=== PATIENT | female | born 1960 | race Caucasian/White ===

== ENCOUNTER 2021-01-02 08:37 | Inpatient (IN) | payer OTHER ==
[~2021-01-02] VITALS: Ht 157.5 cm; Wt 77.1 kg
[2021-01-02 08:40] VITALS: BP 167/86
[2021-01-02] MEDS ORDERED: TRELEGY ELLIPT1 EACH INH (08:48)
[2021-01-02] MEDS ORDERED: NEBULIZER MISCELL (08:48)
[2021-01-02] MEDS ORDERED: PROAIR HFA8.5 GM INH (08:48)
[2021-01-02 09:17] LABS: HEMATOCRIT 20.2 % (37.0-47.0); MCH 28.4 pg (26.0-34.0); MCHC 31.1 g/dL (28.0-37.0); MCV 91.3 fL (80.0-100.0); MPV 10.3 fl. (7.2-11.1); NUCLEATED RBCS 0 /100WBC; RBC 2.21 mil/uL (4.20-5.00); RDW-CV 19.6 % (10.5-14.5)
[2021-01-02 09:19] LABS: CALCIUM 8.6 mg/dL (8.5-10.1); CREATININE 1.2 mg/dL (0.6-1.3); POTASSIUM 3.3 mmol/L (3.5-5.1)
[2021-01-02 09:24] LABS: HEMOGLOBIN 6.3 gm/dL (12.0-15.0); PLATELET COUNT* 35 thou/uL (150-400); WBC 237.5 thou/uL (4.0-11.0)
[2021-01-02 09:34] LABS: ALBUMIN 3.4 g/dL (3.4-5.0); TOTAL BILIRUBIN 1.6 mg/dL (<0.1-1.0); TOTAL PROTEIN 7.2 g/dL (6.4-8.2)
[2021-01-02 09:49] LABS: ABSOLUTE LYMPHOCYTES 178.1 thou/uL (0.8-5.3); ABSOLUTE MONOCYTES 9.5 thou/uL (0.0-1.2); ABSOLUTE NEUTROPHILS 9.5 thou/uL (1.6-8.1)
[2021-01-02 09:50] LABS: ANISOCYTOSIS 2+; PLATELET ESTIMATE DECREASED
[2021-01-02 09:56] LABS: BLASTS 17 %
--- NOTE | 2021-01-02 10:38 | EKG ---
[place] [address] ELECTROCARDIOGRAM REPORT Name: SMILEY DEL CID Room: [place] [address] ADM IN .R.#: [id number] Admission: 01/02/21 Attend Phys: Ashutosh Yanez Discharge: Date of : 62 Date of Service: 01/02/21 0858 Report #: [id number] THIS REPORT FOR: //name// [facility] ED Test Date: 2021-01-02 Test Time: 08:58:41 Pat Name: SMILEY DEL CID Department: Room: [facility] Gender: F Live Study Manager: TAIWO : 1960 Requested By: Alton Donohue Order Number: [id number] MD: Yahir Abdi Measurements Intervals [place] Rate: 134 P: 77 DC: 131 QRS: 246 QRSD: 100 T: 57 QT: 315 QTc: 471 Interpretive Statements Sinus tachycardia LAD, consider left anterior fascicular block Abnormal R-wave progression, late transition Minor nonspecific ST-T abnormalities No previous ECG available for comparison Electronically Signed On 01-02-2021 10:38:20 CDT by Yahir Abdi [email or web address] <ELECTRONICALLY SIGNED> By: Yahir Abdi MD, FACC 01/02/21 1038 0858 0858 Yahir Abdi MD, FACC /EPI
[2021-01-02 11:46] LABS: URINE BLOOD 3+ (Negative); URINE CLARITY SL CLOUDY; URINE COLOR BROWN; URINE GLUCOSE-RANDOM TRACE (Negative); URINE KETONES 1+ (Negative); URINE LEUKOCYTES-REFLEX NEGATIVE (Negative); URINE NITRITE-REFLEX NEGATIVE (Negative); URINE PROTEIN 2+ (Negative); URINE SPECIFIC GRAVITY >= 1.030 (1.005-1.030); URINE UROBILINOGEN >= 8.0 E.U./dl (0.2-1.0)
[2021-01-02 11:47] LABS: ICTOTEST (BILI CONFIRMATORY) Negative (Negative); URINE BILIRUBIN 2+ (Negative)
[2021-01-02 11:59] LABS: SQUAMOUS 4-10 Moderate /LPF (0-3)
[2021-01-02 12:00] LABS: URINE RBC 3-10 Few /HPF (0-2); URINE WBC-REFLEX 6-15 Few /HPF (0-5)
[2021-01-02 12:01] LABS: HYALINE CASTS 0-3 Few /LPF (None Seen); MUCUS None Seen strn/LPF (None Seen)
[2021-01-02 12:02] LABS: CRYSTALS None Seen /LPF (None Seen)
[2021-01-02 15:40] LABS: HEMATOCRIT 25.4 % (37.0-47.0); HEMOGLOBIN 8.2 gm/dL (12.0-15.0)
[2021-01-02 17:26] VITALS: BP 156/72
[2021-01-02 18:50] VITALS: BP 102/57
[2021-01-03 02:06] LABS: HEMOGLOBIN 6.4 g/dL (11.1-15.9)
--- NOTE | 2021-01-05 08:54 | CON ---
[address] [address] CONSULTATION Name: SMILEY DEL CID Room: [address] IN M.R.#: [id number] Admission: 01/02/21 Attend Phys: Yamilet Blankenship Discharge: 01/02/21 Date of : 62 Report #: [id number] THIS REPORT FOR: cc: SENDY - Pretty family physician/PCP SENDY - No family physician/PCP Roberta Kim MD ~ DATE OF CONSULTATION: 01/02/2021 REQUESTING PHYSICIAN: Ashutosh Yanez DO REASON FOR CONSULTATION: Leukocytosis. HISTORY OF PRESENT ILLNESS: The patient is a 60-year-old woman with history of COPD, otherwise healthy, who is admitted to the hospital with worsening shortness of breath over several weeks. The patient states she has history of COPD. Initially, she thought that her shortness of breath was caused by COPD exacerbation, although she did not have productive cough. Gradually shortness of breath on exertion significantly worsened and she presented to the hospital. On admission, she has extremely elevated white count of 237.5, anemia - hemoglobin 6.3, thrombocytopenia 30. Hematology consult is requested. She denies fevers. Denies recent infections. Denies weight loss, night sweats. She does not remember when she had last blood work done, she says maybe a year ago or maybe 2 years ago. She does not have complaints of epistaxis, bruising. She denies nausea or vomiting. Denies abdominal pain. PAST MEDICAL HISTORY: Significant for COPD. FAMILY HISTORY: Noncontributory. SOCIAL HISTORY: She lives alone. She has 2 children. She states she does not want her children to know "what is going on." PHYSICAL EXAMINATION: VITAL SIGNS: Blood pressure 150/63, heart rate is 133, respiration 22, temperature 96.8. LABORATORY AND DIAGNOSTIC DATA: WBC 237.5, 75% lymphocytes, blasts 17%, monocytes 9%, segmented neutrophils 4%, hemoglobin 6.9, platelets 30, MCV 91.3. Sodium 137, potassium 3.3, BUN 25, creatinine 1.2, total bilirubin 1.6. ASSESSMENT AND PLAN: Leukocytosis with 17% of blasts. I am planning to ask pathology to review her peripheral smear. We will order peripheral blood flow cytometry. I am planning to order abdominal ultrasound to evaluate spleen size. The patient has leukemia. Agree with blood product support at this point. She is receiving packed red blood cells. She does [place] [address] CONSULTATION Name: SMILEY DE LCID Room: [address]#: [id number] Admission: 01/02/21 Attend Phys: Yamilet Blankenship Discharge: 01/02/21 Date of : 62 Report #: [id number] I recommend to transfer the patient to for bone marrow biopsy and management of leukemia. Thank you very much for allowing me to participate in the care of the patient. <ELECTRONICALLY SIGNED> By: Roberta Kim MD 01/05/21 0854 2211 0003Roberta Kim MD /nt
== END 2021-01-02 18:50 | disposition short-term general hospital (02) | DRG 834 ==
LOC: M.ERS 08:37 → M.TBA-ER 09:55
PROVIDERS: Emergency Medicine Emergency Medical Services; ADMIT Internal Medicine; ATTEND Internal Medicine
PROC: 30233N1 Transfusion of Nonautologous Red Blood Cells into Peripheral Vein, Percutaneous Approach (ICD-10-PCS; principal; 2021-01-02)
DX: C95.00 Acute leukemia of unspecified cell type not having achieved remission (principal); J96.22 Acute and chronic respiratory failure with hypercapnia; E87.2 Acidosis; D46.9 Myelodysplastic syndrome, unspecified; Z79.899 Other long term (current) drug therapy; Z20.822 Contact with and (suspected) exposure to COVID-19; E87.6 Hypokalemia; R73.9 Hyperglycemia, unspecified; E80.6 Other disorders of bilirubin metabolism; D69.6 Thrombocytopenia, unspecified; J44.9 Chronic obstructive pulmonary disease, unspecified; Z88.6 Allergy status to analgesic agent